=== PATIENT | female | born 1950 | race Caucasian/White ===

== ENCOUNTER 2025-04-13 14:44 | Emergency (ER) | payer MEDICARE ==
[~2025-04-13] VITALS: Ht 167.6 cm; Wt 57.2 kg
[2025-04-13 14:53] VITALS: BP 146/79; O2SAT 98
[2025-04-13] MEDS ORDERED: TDAP DIPH,PERTUSS,TET VAC/PF 0.5 ML DISP.SYRIN IM ONE (15:39)
[2025-04-13] MEDS: TDAP DIPH,PERTUSS,TET VAC/PF 0.5 ML DISP.SYRIN IM ONE (16:15)
== END 2025-04-13 16:01 | disposition home or self-care (01) ==
LOC: ER 14:44
DX: S06.0XAA Concussion with loss of consciousness status unknown, initial encounter (principal); S01.01XA Laceration without foreign body of scalp, initial encounter; E78.5 Hyperlipidemia, unspecified; G44.309 Post-traumatic headache, unspecified, not intractable; I51.9 Heart disease, unspecified; W22.8XXA Striking against or struck by other objects, initial encounter; Y93.89 Activity, other specified; Y92.89 Other specified places as the place of occurrence of the external cause; Y99.8 Other external cause status
CPT/HCPCS: 70450; 90715; A4606; A4663